=== PATIENT | female | born 1980 | race Caucasian/White ===

== ENCOUNTER 2018-09-18 05:05 | Day surgery (SDC) | payer OTHER ==
[2018-09-16 16:45] VITALS: BMI 27.1
[2018-09-18] MEDS ORDERED: ROPIVACAINE HCL 0.5% 30ML VIAL ONE (07:09)
[2018-09-18] MEDS ORDERED: MIDAZOLAM HCL 2 MG/2 ML SINGLE DOSE VIAL ONE ×2 (07:10)
[2018-09-18] MEDS ORDERED: PROPOFOL 20 ML ONE (07:13)
[2018-09-18] MEDS ORDERED: SUCCINYLCHOLINE CHLORIDE 200 MG/10 ML VIAL ONE (07:13)
[2018-09-18] MEDS ORDERED: ROCURONIUM BROMIDE 50 MG/5 ML VIAL ONE (07:13)
[2018-09-18] MEDS ORDERED: KETAMINE HCL 200 MG/20 ML VIAL ONE (07:14)
[2018-09-18] MEDS ORDERED: ceFAZolin SODIUM 1 GM VIAL ONE (07:16)
[2018-09-18] MEDS ORDERED: SODIUM CHLORIDE 0.9% P/F 10 ML VIAL IJ ONE (07:16)
[2018-09-18] MEDS ORDERED: DEXAMETHASONE SOD PHOSPHATE 4 MG/1 ML VIAL ONE (07:16)
[2018-09-18] MEDS ORDERED: LIDOCAINE HCL/PF 2% SDV 5ML VIAL ONE (07:16)
[2018-09-18 07:18] VITALS: TEMP 98.2
[2018-09-18] MEDS ORDERED: BUPIVACAINE HCL/PF 0.5% (5MG/ML) 10 ML VIAL ONE (07:18)
[2018-09-18] MEDS ORDERED: DESFLURANE GAS 240 ML BOTTLE IH ONE (07:19)
[2018-09-18] MEDS ORDERED: IBUPROFEN 800 MG/8 ML IJ IVPB ONE (07:19)
[2018-09-18] MEDS ORDERED: MAGNESIUM SULF 50% (8.12 MEQ/2 ML-1 GM VIAL) ONE (07:20)
[2018-09-18] MEDS ORDERED: LISINOPRIL 20 MG TABLET (FP) PO ONE ×2 (08:09→08:30)
[2018-09-18] MEDS ORDERED: oxyCODONE HCL 5 MG TABLET PO PRN (11:35)
[2018-09-18] MEDS ORDERED: ONDANSETRON 4 MG/2 ML VIAL IVPUSH PRN (11:35)
[2018-09-18] MEDS ORDERED: LACTATED RINGERS SOLUTION 1,000 ML IV SCH (11:45)
[2018-09-18 14:30] VITALS: BP 149/103; PULSE 63
== END 2018-09-18 09:30 | disposition home or self-care (01) ==
LOC: UNDOADMIN 05:05 → JSAMEDAYSX 05:05 → JASU-SURG 05:05 → UNDODISIN 09:30 → EDSTATUS 10:30
PROVIDERS: ATTEND Obstetrics & Gynecology
DX: Z53.8 Procedure and treatment not carried out for other reasons (principal)
CPT/HCPCS: 36415; 84703; 86850; 86900; 86901

== ENCOUNTER 2018-11-27 05:03 | Inpatient (IN) | payer OTHER | END 2018-11-29 15:53 | disposition home or self-care (01) | LOC: JSAMEDAYSX 05:03 → J6S 12:29 ==

== ENCOUNTER 2021-09-24 00:57 | Emergency (ER) | payer OTHER ==
[2021-09-24 01:07] VITALS: BP 194/133; PULSE 100; TEMP 99.4; BMI 26.4
[2021-09-24] MEDS ORDERED: CEPHALEXIN MONOHYDRATE 500 MG CAPSULE (UD) PO ONE (02:25)
[2021-09-24] MEDS ORDERED: DIPHTH,PERTUSS(ACELL),TET 0.5 ML DISP.SYRIN IM ONE ×2 (02:26→02:30)
[2021-09-24] MEDS ORDERED: CEPHALEXIN MONOHYDRATE 500 MG CAPSULE (UD) ONE (02:30)
== END 2021-09-24 02:37 | disposition home or self-care (01) ==
LOC: FER 00:57
PROC: 0HQFXZZ Repair Right Hand Skin, External Approach (ICD-10-PCS; principal; 2021-09-24)
PROC: 3E0234Z Introduction of Serum, Toxoid and Vaccine into Muscle, Percutaneous Approach (ICD-10-PCS; 2021-09-24)
DX: S61.012A Laceration without foreign body of left thumb without damage to nail, initial encounter (principal); W26.8XXA Contact with other sharp object(s), not elsewhere classified, initial encounter
CPT/HCPCS: 73140-TC-LT-FY; 90715; 99284-25

== ENCOUNTER 2021-09-29 22:46 | Emergency (ER) | payer OTHER ==
[2021-09-29 22:52] VITALS: BP 159/113; PULSE 88; TEMP 99.1; BMI 26.4
== END 2021-09-29 23:06 | disposition home or self-care (01) ==
LOC: FER 22:46
DX: Z48.02 Encounter for removal of sutures (principal)
CPT/HCPCS: 99281-25